=== PATIENT | male | born 1985 | race Two or more races ===

== ENCOUNTER 2021-09-15 12:07 | Outpatient (REF) | payer OTHER, SELFPAY | END 2021-09-15 12:08 | disposition home or self-care (01) | LOC: HO.HOSX 12:07 | PROVIDERS: Visit Provider Physician Assistant | DX: Z13.89 Encounter for screening for other disorder (principal) ==

== ENCOUNTER 2022-06-28 06:46 | Day surgery (SDC) | payer OTHER, SELFPAY ==
[2022-06-22 15:32] VITALS: BMI 27.8
--- NOTE | 2022-06-27 12:30 | HO.ANESPROP2 ---
Documented by User: Angelika Taylor NP 06/27/22 12:30 HPI - Anesthesia Eval Consult details Narrative: 37yo M for Left ACL Allograft [facility] Active Problems Active Problems: All Active Problems (Updated 06/22/22 @ 15:31 by Divine Rouse RN) Complete tear of anterior cruciate ligament of left knee (Acute) Complete tear of anterior cruciate ligament of left knee (Acute) Past Medical History Medical History GERD (gastroesophageal reflux disease) Renal calculi Surgical History Surgical History History of surgery Social History Social History (Updated 06/26/22 @ 09:50 by JARED Matt) Are you a primary early breastfeeding care specialist to a significant other at home: No Do you presently have visiting nurse or other home services: No Patient Tobacco Use Status: Current someday Tobacco user Tobacco use type: Cigarette Current occupational status: employed Current occupation: Military Technician/rt hand Meds Allergies Allergy/AdvReac Type Severity Reaction Status Date / Time No Known Allergies Allergy Verified 06/26/22 09:50 Home Medications Medication Instructions Recorded Confirmed Last Taken Type esomeprazole magnesium 20 mg 20 mg PO DAILY PRN Acid Reflux 06/22/22 06/26/22 Unknown History capsule,delayed release (Nexium) Exam Exam Date and Time: June 27, 2022 1230 Height,Weight and Vital Signs: Height 5 ft 8 in Weight 83.007 kg Assessment and Plan Assessment Anesthesia Assessment: Chart Reviewed Documented by User: Leonides Jones MD 06/28/22 17:36 [facility] Past Medical History Medical History GERD (gastroesophageal reflux disease) Renal calculi Family History Family history of problems with anesthesia: No Surgical History Surgical History History of surgery History of Problems with Anesthesia: No Social History Social History (Updated 06/26/22 @ 09:50 by JARED Matt) Are you a primary early breastfeeding care specialist to a significant other at home: No Do you presently have visiting nurse or other home services: No Patient Tobacco Use Status: Current someday Tobacco user Tobacco use type: Cigarette Current occupational status: employed Current occupation: Military Technician/rt hand Meds Allergies Allergy/AdvReac Type Severity Reaction Status Date / Time No Known Allergies Allergy Verified 06/26/22 09:50 Home Medications Medication Instructions Recorded Confirmed Last Taken Type esomeprazole magnesium 20 mg 20 mg PO DAILY PRN Acid Reflux 06/22/22 06/26/22 Unknown History capsule,delayed release (Nexium) Exam Airway Mallampati Class: III TM Dist: >3cm Neck ROM: Full Loose/Missing/Broken Teeth: Yes (Inner Liner , upper and lower ) Heart: S1,S2 Lungs: b/l breath sounds Assessment and Plan Assessment Anesthesia Assessment: Anesthesia Plan Discussed Final Anesthetic Review Family History of Problems with Anesthesia: No History of Problems with Anesthesia: No NPO: Yes ASA Class: II Final Preanesthetic Review: Meds/Allgs Chart Reviewed, Consent Obtained/Reviewed and Anes Risks/Benef Reviewed Patient Risk: Intermediate Procedure Risk: Intermediate Anesthetic Plan Anesthetic Plan: GA and Regional Block Disposition: Standard PACU
[2022-06-28] VITALS (10 sets, daily range): BP systolic 121–144; BP diastolic 77–101; PULSE 92–108; RESP 14–18; TEMP 36.4–36.8; O2SAT 98–100; BMI 27.3
[2022-06-28] MEDS: Lactated Ringers 1,000 ML 100 ML IVCONT (07:31)
--- NOTE | 2022-06-28 07:39 | MHC.SHP ---
Pre-Procedural Eval Section A Date of Service: 06/28/22 The patient is an INPATIENT: No Changes since office visit: No Cold of Flu in the past 2 weeks, No New Medical Problems and No Changes in Medication The History & Physical has been completed within 30 days and I have reviewed it.: Yes Section B Chief Complaint: Sprain of anterior cruciate ligament of left knee, Allergies: Allergies Allergy/AdvReac Type Severity Reaction Status Date / Time No Known Allergies Allergy Verified 06/26/22 09:50 Plan I have reviewed the history and physical and performed a pertinent physical examination on my patient. No changes have occurred unless specified. Time Spent With Patient Time: Total time managing care of this patient today ____ minutes.
--- NOTE | 2022-06-28 09:58 | P.BOP_ITS ---
Brief Operative Note Date of Service: 06/28/22 Pre-op diagnosis: Left ACL tear Post-op diagnosis: same Procedure: Left ACL reconstruction with allograft Implants: Farias and Nephew endobutton and Tibialis Anterior Allograft Surgeon: Albert Laguna MD Anesthesia: GETA and regional Was an [employer] Fund used for this Procedure?: Yes [employer]: Makenna Rodas Estimated blood loss (mL): 25 Tourniquet time (min): 50 IV fluids (mL): 1,000 Pathology: none sent Condition: stable Disposition: PACU
[2022-06-28] MEDS: Acetaminophen 325 MG TABLET 650 MG PO (10:55)
[2022-06-28] MEDS: oxyCODONE HCl Immed Release 5 MG TABLET PO (10:59)
--- NOTE | 2022-06-28 15:06 | P.OP_ITS ---
Operative Note Operative Note Date of Service: 06/28/22 Narrative: Brief Operative Note Date of Service: 06/28/22 Pre-op diagnosis: Left ACL tear Post-op diagnosis: same Procedure: Left ACL reconstruction with allograft Implants: Farias and Nephew endobutton and Tibialis Anterior Allograft Surgeon: Albert Laguna MD Anesthesia: GETA and regional Was an Appliance Service Technician used for this Procedure?: Yes Appliance Service Technician: Makenna Rodas Estimated blood loss (mL): 25 Tourniquet time (min): 50 IV fluids (mL): 1,000 Pathology: none sent Condition: stable Disposition: PACU Procedure in detail: Patient was brought to the operating room placed supine on the arthroscopic table and prepped and draped in standard sterile fashion. A time-out was called to identify proper site proper procedure proper surgeon and IV antibiotics per weight were administered. Under anesthesia she had a + pivot shift. I began by exsanguinating the limb and insufflating tourniquet to 300 mm Hg. Then made a standard anterolateral stab incision. The knee was insufflated with water and 30 degree arthroscope was placed. There was grade 0 fibrillations of the patella but overall suprapatellar pouch and the gutters were clean. I descended into the medial compartment where I made my far medial portal under direct visualization. There was intct cartilage and meniscus of both compartments. I then examined the notch where there was a + empty wall sign and an intact PCL. I debrided the stump and acl footprint and performed a limited notchplasty. I then, through a far AM portal and a 7mm behind the back guide, drilled a k-wire through the LFC with the knee in hyper-flexion. I measured the tunnel as a 36 and then after sizing the allograft on the back table drilled a 28 mm tunnel with a 10 mm reamer. The final 8 mm was drilled with a 4.5 reamer. I then pulled a suture through the femoral tunnel and turned my attention to the tibia. I did examine the femoral tunnel and was satisfied with the posterior wall and its location low and medial at the anatomic footprint. I placed my tibial drill guide in 55 deg and, through a anteromedial inc just lateral to the tibial tubercle placed a k-wire into the notch exiting just medial to the anterior horn insertion of the lateral meniscus. I then over-reamed with an 10 reamer. I cleaned the tunnels up with a shaver. On the back table I whip-stitched the allograft to fit through a 10 aperture and attached the femoral button to the looped end. I placed the graft on 15lbs of tension for 10 minutes. I then passed the allograft through the tibial tunnel and femoral tunnel and flipped the button. I cycled the knee about 10-15 cycles and then placed a tibial interference screw with the knee in hyper-extension while holding the graft taught. Once I was satisfied that the interference screw was buried I examined the ACL. The repair was stable and the ACL was not impinging and there was a negative pivot shift. I then removed all instrumentation and closed the incisions with nylon. Patient was then placed in sterile dressings and a hinged knee brace. She was then extubated brought recovery room stable condition. There were no known complications.
== END 2022-06-28 12:44 | disposition home or self-care (01) ==
PROVIDERS: PCP Student in an Organized Health Care Education/Training Program; Visit Provider Orthopaedic Surgery
PROC: (CPT 27428; principal; 2022-06-28 08:20)
DX: S83.512A Sprain of anterior cruciate ligament of left knee, initial encounter (principal); X58.XXXA Exposure to other specified factors, initial encounter; Y93.68 Activity, volleyball (beach) (court); Y92.9 Unspecified place or not applicable; Y99.8 Other external cause status; F17.210 Nicotine dependence, cigarettes, uncomplicated
CPT/HCPCS: 29888; A4649; C1713; C1769; J0171; J0690; J1170; J2250; J2405; J2795; J3010

== ENCOUNTER 2022-07-05 18:31 | Outpatient (REF) | payer OTHER, SELFPAY | END 2022-07-05 18:32 | disposition home or self-care (01) | LOC: HO.HOSX 18:31 | PROVIDERS: Visit Provider Physician Assistant | DX: Z13.89 Encounter for screening for other disorder (principal) ==

== ENCOUNTER 2022-07-06 17:06 | Outpatient (REF) | payer OTHER, SELFPAY ==
--- NOTE | ~2022-07-06 | XR_ITS ---
EXAMINATION: XR KNEE AP STANDING CLINICAL INFORMATION: Pain COMPARISON: None TECHNIQUE: AP bilateral standing view of the knees was obtained. FINDINGS: Postsurgical changes left knee likely prior ACL repair. Bones and soft tissues are normal. No fracture or joint effusion. Alignment is anatomic. Joint spaces are well maintained. No abnormal soft tissue calcification. XR/XR knee standing BI IMPRESSION: Postsurgical changes left knee likely prior ACL repair. No significant osseous changes to explain patient's pain symptoms. Joint spaces are preserved.
== END 2022-07-06 17:07 | disposition home or self-care (01) ==
LOC: HO.HOSX 17:06
PROVIDERS: Visit Provider Physician Assistant
DX: S83.512D Sprain of anterior cruciate ligament of left knee, subsequent encounter (principal)
CPT/HCPCS: 73565

== ENCOUNTER → 2022-08-03 11:05 | Outpatient (BNVA) | payer OTHER, SELFPAY | PROVIDERS: Visit Provider Physician Assistant | DX: Z13.89 Encounter for screening for other disorder (principal) ==

== ENCOUNTER 2022-09-07 09:01 | Outpatient (REF) | payer OTHER, SELFPAY ==
--- NOTE | ~2022-09-07 | XR_ITS ---
EXAMINATION: XR KNEE, LEFT CLINICAL INFORMATION: Left knee pain COMPARISON: None TECHNIQUE: Four views of the left knee. FINDINGS: The tricompartment joint space is mildly reduced. There is mild spurring joint effusion. There is evidence of previous ACL repair. No loose bodies, acute fracture or lytic process seen. XR/XR knee LT 2V IMPRESSION: 1. Mild degenerative changes left knee with mild suprapatellar joint effusion. 2. Evidence of previous ACL repair.
== END 2022-09-07 09:02 | disposition home or self-care (01) ==
LOC: HO.HOSX 09:01
PROVIDERS: Visit Provider Orthopaedic Surgery
DX: M25.562 Pain in left knee (principal); Z87.828 Personal history of other (healed) physical injury and trauma
CPT/HCPCS: 73560

== ENCOUNTER → 2022-12-07 10:37 | Outpatient (BNVA) | payer OTHER, SELFPAY | PROVIDERS: Visit Provider Orthopaedic Surgery ==

== ENCOUNTER 2023-02-05 08:31 | Outpatient (AMB) | payer OTHER, SELFPAY ==
--- NOTE | 2023-02-05 08:37 | MHC.OFFVIS ---
Intake Intake Visit Reasons: OV-Left ACL repair 06/28/22 NE Intake Note: Bharathi is a 37 year old male who presents today for a post operative appointment s/p left ACL repair on 06/28/22. Patient reports that he is doing well, he finds pain while climbing stairs. He has tried running but finds that he is worried of injuring the knee. About a week ago he was walking on uneven ground when he felt his knee lock out in extension, he felt pain after this. He worries that he stil does not have fulll control on the knee. Allergies No Known Allergies Allergy (Verified 08/03/22 11:19) HPI OV-Left ACL repair 06/28/22 NE HPI Details Si is a 37 year old man who presents ~7 months S/P left ACL repair. He says he is doing well overall, but he is worried he does not have full control of his knee. He has pain when climbing stairs and is worried about running. He says while walking over uneven ground he felt his knee lock in extension. He localizes his pain to the anterior of his knee. He has been exercising at the gym 3-4X weekly, and works on weight-lifting and using a stationary bicycle with a personalized living manager. He is still not performing running & jumping exercises. [facility] Medical History GERD (gastroesophageal reflux disease) Renal calculi Surgical History History of surgery Social History Are you a primary director of patient care to a significant other at home: No Do you presently have visiting nurse or other home services: No Patient Tobacco Use Status: Current someday Tobacco user Tobacco use type: Cigarette Current occupational status: employed Current occupation: Product Marketing Consultant/rt hand Review of Systems Const All systems reviewed & are unremarkable except as noted in HPI and below Physical Exam Const General: no acute distress and alert Orientation/consciousness: patient oriented x3 Neuro General: patient oriented x3 Extrem Other: Left Knee: Well healed portals Full ROM Stable Kamaljit's No effusion No reproducible pain Psych Appearance: grossly normal Affect: normal affect Attitude: cooperative Assessment & Plan Assessment & Plan (1) Complete tear of anterior cruciate ligament of left knee: Code(s): S83.512A - Sprain of anterior cruciate ligament of left knee, initial encounter Plan: This is a 37 year old man S/P left ACL repair, DOS: 06/28/22. He is doing well, continues to have some anterior knee pain with climbing stairs. I recommend he continue to focus on closed-chain strengthening exercises at the gym (per PT protocol), NSAIDs, and icing after exercising. He should continue focusing on quad strengthening exercises, and avoid any run/jump protocols until he is at least 9 months p/o. He was fitted for a true-pull knee brace to wear with daily activity, prn. He will follow up in 2 months. Plan Scribed for Albert Laguna MD by Sharad Flores, medical office asst, on 02/05/23 at 9:00 AM, EST. Coding Level of Care Code Est Pt Level 3 (54384) Diagnoses Complete tear of anterior cruciate ligament of left knee S83.512A
== END 2023-02-05 09:13 | disposition home or self-care (01) ==
PROVIDERS: Visit Provider Orthopaedic Surgery
DX: S83.512D Sprain of anterior cruciate ligament of left knee, subsequent encounter (principal)
CPT/HCPCS: 99213

== ENCOUNTER → 2023-02-05 08:31 | Outpatient (BNVA) | payer OTHER, SELFPAY | PROVIDERS: Visit Provider Orthopaedic Surgery ==

== ENCOUNTER 2023-03-19 08:39 | Outpatient (AMB) | payer OTHER, SELFPAY ==
--- NOTE | 2023-03-19 08:41 | A.OFFVIS_ITS ---
Intake Intake Visit Reasons: OV-Left ACL repair 06/28/22 NE Follow up Intake Note: Grecia is a 37 year old male who presents today for a follow up of his left knee s/p Left ACL Repair 06/28/22. He reports minimal pain and says he still lacks confidence in running and exercise but overall feels much better. Allergies No Known Allergies Allergy (Verified 03/19/23 08:43) HPI OV-Left ACL repair 06/28/22 NE Follow up HPI Details GRECIA is 29-year-old who is 9 months status post left ACL reconstruction. He is doing well. He walks regularly feels sometimes unsure of his knee but has had no problems. [facility] Medical History GERD (gastroesophageal reflux disease) Renal calculi Surgical History History of surgery Social History Are you a primary care team coordinator scheduler to a significant other at home: No Do you presently have visiting nurse or other home services: No Patient Tobacco Use Status: Current someday Tobacco user Tobacco use type: Cigarette Current occupational status: employed Current occupation: Finance Admin/rt hand Physical Exam Extrem Other: On exam he has well-healed portals. He has full range of motion. Stable Kamaljit's. Stable to varus valgus stress. Assessment & Plan Assessment & Plan (1) Complete tear of anterior cruciate ligament of left knee: Code(s): S83.512A - Sprain of anterior cruciate ligament of left knee, initial encounter Plan: Status post ACL reconstruction doing well. I do think he would benefit from a functional ACL brace and I will contact our brace [employer] in order to get that for him. I would like to see him back in 3 months time. Coding Level of Care Code Est Pt Level 3 (17609) Diagnoses Complete tear of anterior cruciate ligament of left knee S83.512A
== END 2023-03-19 09:06 | disposition home or self-care (01) ==
PROVIDERS: Visit Provider Orthopaedic Surgery
DX: S83.512A Sprain of anterior cruciate ligament of left knee, initial encounter (principal)
CPT/HCPCS: 99213

== ENCOUNTER → 2023-03-19 08:39 | Outpatient (BNVA) | payer OTHER, SELFPAY | PROVIDERS: Visit Provider Orthopaedic Surgery ==

== ENCOUNTER 2023-06-18 08:42 | Outpatient (AMB) | payer OTHER, SELFPAY ==
--- NOTE | 2023-06-18 08:45 | MHC.OFFVIS ---
Intake Intake Visit Reasons: OV-Left ACL repair 06/28/22 NE Intake Note: Bharathi is a 37 year old male who presents today for a follow up of his left knee s/p Left ACL Repair 06/28/22. At his last visit a custom functional ACL brace was ordered for him. He is having pain on the lateral aspect of the knee when climbing stairs. Allergies No Known Allergies Allergy (Verified 03/19/23 08:43) HPI OV-Left ACL repair 06/28/22 NE HPI Details Bharathi is a 38 year old man ~1 year S/P left ACL reconstruction. He complains of a pain in the lateral aspect of his knee, worse with activities such as climbing stairs. A functional ACL brace was ordered for him at his last appointment, he says this brace has been helpful for him. [facility] Medical History GERD (gastroesophageal reflux disease) Renal calculi Surgical History History of surgery Social History Are you a primary pharmacist critical care to a significant other at home: No Do you presently have visiting nurse or other home services: No Patient Tobacco Use Status: Current someday Tobacco user Tobacco use type: Cigarette Current occupational status: employed Current occupation: [employer]/rt hand Review of Systems Const All systems reviewed & are unremarkable except as noted in HPI and below Physical Exam Const General: no acute distress, alert and awake Orientation/consciousness: patient oriented x3 HEENT Head: Yes normocephalic and Yes atraumatic Eyes EOM: EOMs intact bilaterally Resp Effort & Inspection: normal respiratory effort and able to speak in complete sentences Cardio Jugular venous distension: no JVD Skin General skin exam: turgor normal Rashes: no rashes Neuro General: patient oriented x3 Extrem Other: Full ROM left knee Stable jesus's Mild retropatellar TTP Psych Appearance: grossly normal Affect: normal affect Attitude: cooperative Assessment & Plan Assessment & Plan (1) S/P ACL reconstruction: Code(s): Z98.890 - Other specified postprocedural states Plan: Anterior knee pain s/p left ACL recon. Discussed exercises. Closed chain. (2) Anterior knee pain: Code(s): M25.569 - Pain in unspecified knee Plan: See above Plan Scribed for Albert Laguna MD by Sharad Flores, lpn or medical assistant, on 06/18/23 at 8:55 AM, EST. Coding Level of Care Code Est Pt Level 3 (20807) Diagnoses S/P ACL reconstruction Z98.890 Anterior knee pain M25.569
== END 2023-06-18 08:59 | disposition home or self-care (01) ==
PROVIDERS: Visit Provider Orthopaedic Surgery
DX: S83.512D Sprain of anterior cruciate ligament of left knee, subsequent encounter (principal); M25.562 Pain in left knee
CPT/HCPCS: 99213

== ENCOUNTER → 2023-06-18 08:42 | Outpatient (BNVA) | payer OTHER, SELFPAY | PROVIDERS: Visit Provider Orthopaedic Surgery ==